=== PATIENT | male | born 1990 ===

== ENCOUNTER 2022-06-01 06:54 | Outpatient (CLI) | payer OTHER, SELFPAY ==
--- NOTE | ~2022-06-01 | MR_ITS ---
MRI of the left shoulder Technique: Axial proton-density fat-sat images, coronal proton density fat-sat and T2 fat-sat images, and sagittal T1-weighted and T2 fat-sat images were acquired. Clinical History: Pain Findings: There is no significant degenerative change at the AC joint. No subacromial spur evident. C oracoclavicular, coracoacromial, and coracohumeral ligaments are intact. Supraspinatus and infraspinatus tendons are intact, without partial or full-thickness tear. Subscapul yong tendon is intact. Tendon of long head of the biceps is intact. No labral tear identified. Inferior glenohumeral ligament is intact. No effusion or degenerative change at the glenohumeral join t. There is minimal fluid within the subacromial/subdeltoid bursa. No muscle atrophy or edema identif ied. Impression: Minimal fluid in the subacromial/subdeltoid bursa. Correlate for minimal bursitis. No other significant findings. Reviewed, dictated and finalized at [facility]. Impression: Minimal fluid in the subacromial/subdeltoid bursa. Correlate for minimal bursit is. No other significant findings.
== END 2022-06-01 06:55 ==
PROVIDERS: PCP Family Medicine Sports Medicine
DX: M25.512 Pain in left shoulder (principal)
CPT/HCPCS: 73221